=== PATIENT | male | born 1985 | race Hispanic/Latino ===

== ENCOUNTER 2022-12-05 16:57 | Emergency (ER) | payer OTHER ==
--- NOTE | 2022-12-05 18:28 | RAD REPORT ---
EXAM DESCRIPTION: RAD - Tib Fib Right - 12/05/2022 5:56 pm CLINICAL HISTORY: PAIN COMPARISON: No comparisons TECHNIQUE: Right tibia and fibula, 2 views. FINDINGS: No fracture is identified. There is no dislocation or periosteal reaction noted. No acute or suspicious bony finding. No foreign body or other soft tissue abnormality. IMPRESSION: Negative right tibia & fibula examination.
--- NOTE | 2022-12-05 18:29 | RAD REPORT ---
EXAM DESCRIPTION: RAD - Foot Right 2 View - 12/05/2022 5:56 pm CLINICAL HISTORY: PAIN COMPARISON: No comparisons TECHNIQUE: Right foot, 2 views. FINDINGS: No fracture, dislocation or periosteal reaction. No air or foreign body in the soft tissues. IMPRESSION: Negative right foot examination.
--- NOTE | 2022-12-05 18:29 | RAD REPORT ---
EXAM DESCRIPTION: RAD - Tib Fib Left - 12/05/2022 5:56 pm CLINICAL HISTORY: PAIN COMPARISON: Tib Fib Right dated 12/05/2022 TECHNIQUE: Left tibia and fibula, 2 views. FINDINGS: No fracture is identified. There is no dislocation or periosteal reaction noted. Epiphyses and growth plates are normal in appea betty. No foreign body or other soft tissue abnormality. IMPRESSION: Negative left tibia & fibula examination.
--- NOTE | 2022-12-05 18:31 | RAD REPORT ---
EXAM DESCRIPTION: RAD - Foot Left 2 View - 12/05/2022 5:56 pm CLINICAL HISTORY: PAIN COMPARISON: No comparisons TECHNIQUE: Left foot, 2 views. FINDINGS: No fracture, dislocation or periosteal reaction. No air or foreign body in the soft tissues. IMPRESSION: Negative left foot radiographs.
--- NOTE | 2022-12-05 18:32 | RAD REPORT ---
EXAM DESCRIPTION: RAD - Femur Left - 12/05/2022 5:56 pm CLINICAL HISTORY: PAIN COMPARISON: Tib Fib Left dated 12/05/2022 TECHNIQUE: Left femur, 2 views. FINDINGS: No fracture is identified. There is no dislocation or periosteal reaction noted. No acute or suspicious bony finding. IMPRESSION: Negative left femur examination.
--- NOTE | 2022-12-05 18:43 | EDPHYS ---
Physician Documentation [facility] Name: Paris Velasquez Jr Age: 37 yrs Sex: Male : 1985 Arrival Date: 12/05/2022 Time: 16:57 Bed Treatment Private MD: ED Physician Yan Huggins HPI: 12/05 18:19 This 37 yrs old Male presents to ER via Ambulatory with complaints of Fell Out kb of a Tree. 18:19 Trauma demographics: County: The injury occurred in [place] Location of Injury: The kb injury occurred at home, Date: December 05, 2022. Mechanism of injury: Fall: the patient fell from a tree, approximately approximately 20 feet. Associated injuries: The patient sustained right leg and left leg, decreased range of motion, painful injury. Onset: The symptoms/episode began/occurred 2 hour(s) ago. The patient has not experienced similar symptoms in the past. The patient has not recently seen a physician. Pt reports he was cutting limbs in a tree and fell to the ground. Denies headache, dizziness or loc. Denies neck pain, back pain, shortness of breath, numbness or tingling. States he was able to walk immediately afterwards, but after he cooled off he started having pain to both legs below knees. Historical: - Allergies: 17:08 No Known Allergies; ss - Home Meds: 17:08 None [Active]; ss - PMHx: 17:08 None; ss - PSHx: 17:08 None; ss - Immunization history:: Client reports having NOT received the Covid vaccine. - Social history:: Smoking status: Patient reports the use of cigarette tobacco products, smokes one pack cigarettes per day. ROS: 18:16 Constitutional: Negative for fever, chills, and weight loss. kb 18:16 MS/extremity: Positive for pain, of the right leg and left leg. 18:16 All other systems are negative. Exam: 18:16 Constitutional: This is a well developed, well nourished patient who is awake, alert, kb and in no acute distress. Head/Face: Normocephalic, atraumatic. ENT: Moist Mucous membranes Neck: Trachea midline, no thyromegaly or masses palpated, and no cervical lymphadenopathy. Supple, full range of motion without nuchal rigidity, or vertebral point tenderness. No Meningismus. Chest/axilla: Normal chest wall appearance and motion. Cardiovascular: Regular rate and rhythm with a normal S1 and S2. No gallops, murmurs, or rubs. No pulse deficits. Respiratory: Respirations even and unlabored. No increased work of breathing. Talking in full sentences Abdomen/GI: Soft, non-tender. No distention Back: No spinal tenderness. No costovertebral tenderness. Full range of motion. Neuro: Awake and alert, GCS 15, oriented to person, place, time, and situation. Moves all extremities. Normal gait. 18:16 Eyes: Periorbital structures: appear normal, Pupils: equal, round, and reactive to light and accomodation, Extraocular movements: intact throughout, Conjunctiva: subconjunctival hemorrhage(s), seen in the left eye, at 9 o'clock. 18:16 Musculoskeletal/extremity: Extremities: grossly normal except: noted in the right lopez, anterior aspect of right ankle, dorsum of right foot, left lopez, anterior aspect of left ankle and dorsum of left foot: ROM: limited active range of motion due to pain, in the left quadriceps, Circulation is intact in all extremities. Sensation intact. Weight bearing: is unable to bear weight. 18:16 Skin: injury, abrasion(s), small abrasion noted, moderate sized abrasion noted, of the right arm, contusion(s), that are superficial, of the lateral aspect of left thigh. Vital Signs: 17:04 BP 111 / 80; ss 17:04 Pulse 83; Resp 18; Temp 98.7(TE); Pulse Ox 99% on R/A; Weight 63.5 kg; Height 5 ft. 5 ss in. ; Pain 8/10; 17:15 BP 115 / 78; Pulse 78; Resp 16; Pulse Ox 99% ; ko1 18:45 BP 124 / 76; Pulse 82; Resp 18; Pulse Ox 99% ; ko1 17:04 Body Mass Index 23.30 (63.50 kg, 165.1 cm) ss 17:04 Pain Scale: Adult ss MDM: 17:04 Patient medically screened. kb 18:16 Refusal of service: The patient/guardian displays adequate decision making capability kb and despite a detailed discussion of alternatives, benefits, risks, and consequences refuses: CT Scan. 18:20 Differential diagnosis: closed head injury, extremity fracture, C spine fracture, T kb spine fracture, L spine fracture. Data reviewed: vital signs, nurses notes. Historians other than the Patient: Spouse/Significant Other: . Counseling: I had a detailed discussion with the patient and/or guardian regarding: the historical points, exam findings, and any diagnostic results supporting the discharge/admit diagnosis, radiology results, the need for outpatient follow up, a family practitioner, to return to the emergency department if symptoms worsen or persist or if there are any questions or concerns that arise at home. ED course: Discussed need for CT to rule out any major injuries due to mechanism of injury. Pt refuses CT scan. 12/05 17:15 Order name: Femur Left XRAY; Complete Time: 18:41 kb 12/05 17:15 Order name: Tib Fib Left XRAY; Complete Time: 18:31 kb 12/05 17:15 Order name: Tib Fib Right XRAY; Complete Time: 18:31 kb 12/05 17:15 Order name: Foot Left 2 View XRAY; Complete Time: 18:31 kb 12/05 17:15 Order name: Foot Right 2 View XRAY; Complete Time: 18:31 kb Administered Medications: No medications were administered Disposition: 20:37 Co-signature as Attending Physician, Yan Huggins MD I reviewed the patient's care rn provided by the Advanced Practice Provider and agree with the diagnosis and treatment plan. Disposition Summary: 12/05/22 18:42 Discharge Ordered Location: Home kb Condition: Stable kb Diagnosis - Pain in right lower leg kb - Pain in left lower leg kb - Subconjunctival hemorrhage kb - Abrasion of right upper arm kb - Contusion of left lower leg kb Followup: kb - With: Emergency Department - When: As needed - Reason: Worsening of condition Followup: kb - With: Private Physician - When: 2 - 3 days - Reason: Recheck today's complaints, Continuance of care, Re-evaluation by your physician Discharge Instructions: - Discharge Summary Sheet kb - Musculoskeletal Pain kb - Subconjunctival Hemorrhage kb - Contusion, [id number] kb Forms: - Medication Reconciliation Form kb - Thank You Letter kb - Antibiotic Education kb - Prescription Opioid Use kb - [email or web address] kb Prescriptions: - Diclofenac Sodium 75 mg Oral tablet,delayed release (DR/EC) - take 1 tablet by ORAL route 2 times per day As needed; 30 tablet; Refills: 0, kb Product Selection Permitted - orphenadrine citrate 100 mg Oral Tablet Sustained Release - take 1 tablet by ORAL route 2 times per day As needed; 20 tablet; Refills: 0, kb Product Selection Permitted Signatures: Dispatcher [employer] EDConsuelo Wong, PRINTING SUPERVISOR-C PRINTING SUPERVISOR-Yan Keyes MD MD rn Blanchard, Shelby, RN RN ss Corrections: (The following items were deleted from the chart) 18:16 17:15 Head C Spine Cap Wo Con+CT.RAD.BRZ ordered. EDMS EDMS
--- NOTE | 2022-12-05 18:43 | ER ---
Nurse's Notes [facility] Name: Paris Velasquez Jr Age: 37 yrs Sex: Male : 1985 Arrival Date: 12/05/2022 Time: 16:57 Bed Treatment Private MD: Diagnosis: Pain in right lower leg;Pain in left lower leg;Subconjunctival hemorrhage;Abrasion of right upper arm;Contusion of left lower leg Presentation: 12/05 17:04 Chief complaint: Patient states: bilateral ankle/ foot pain after falling 20 feet out ss of a tree. Pt has no other complaints at this time. Coronavirus screen: Client denies travel out of the [place] in the last 14 days. Ebola Screen: Patient denies exposure to infectious person. Patient denies travel to an Ebola-affected area in the 21 days before illness onset. Initial Sepsis Screen: Does the patient meet any 2 criteria? No. Patient's initial sepsis screen is negative. Does the patient have a suspected source of infection? No. Patient's initial sepsis screen is negative. Risk Assessment: Do you want to hurt yourself or someone else? Patient reports no desire to harm self or others. Onset of symptoms was December 05, 2022. 17:04 Method Of Arrival: Ambulatory ss 17:04 Acuity: JESSICA 2 ss Historical: - Allergies: 17:08 No Known Allergies; ss - Home Meds: 17:08 None [Active]; ss - PMHx: 17:08 None; ss - PSHx: 17:08 None; ss - Immunization history:: Client reports having NOT received the Covid vaccine. - Social history:: Smoking status: Patient reports the use of cigarette tobacco products, smokes one pack cigarettes per day. Screenin:15 [facility] ED Fall Risk Assessment (Adult) History of falling in the last 3 months, ko1 including since admission Yes- single mechanical fall (1 pt) Confusion or Disorientation No (0 pts) Intoxicated or Sedated No (0 pts) Impaired Gait No (0 pts) Mobility Assist Device Used No (0 pt) Altered Elimination No (0 pt) Score/Fall Risk Level 0 - 2 = Low Risk Oriented to surroundings, Maintained a safe environment, Educated pt \T\ family on fall prevention, incl call for assistance when getting out of bed, Assessed \T\ reinforced patient's understanding of fall precautions, Provided non-skid footwear, Hourly rounding (assess needs \T\ fall precautionary measures) done, Used ambulatory aids as needed (educated on \T\ assisted with), Used gait belt as appropriate. Abuse screen: Denies threats or abuse. Denies injuries from another. Nutritional screening: No deficits noted. Tuberculosis screening: No symptoms or risk factors identified. Assessment: 17:15 General: Appears in no apparent distress. uncomfortable, Behavior is calm, cooperative, ko1 appropriate for age. Pain: Complains of pain in right leg and left leg. Neuro: No deficits noted. Cardiovascular: No deficits noted. Respiratory: No deficits noted. GI: No deficits noted. : No deficits noted. EENT: No deficits noted. Derm: No deficits noted. Musculoskeletal: Reports pain in right leg and left leg. Vital Signs: 17:04 BP 111 / 80; ss 17:04 Pulse 83; Resp 18; Temp 98.7(TE); Pulse Ox 99% on R/A; Weight 63.5 kg; Height 5 ft. 5 ss in. ; Pain 8/10; 17:15 BP 115 / 78; Pulse 78; Resp 16; Pulse Ox 99% ; ko1 18:45 BP 124 / 76; Pulse 82; Resp 18; Pulse Ox 99% ; ko1 17:04 Body Mass Index 23.30 (63.50 kg, 165.1 cm) ss 17:04 Pain Scale: Adult ss ED Course: 16:58 Patient arrived in ED. rg4 17:04 Consuelo Holland FNP-C is [facility]. kb 17:04 Yan Huggins MD is Attending Physician. kb 17:06 Jen Fierro, DAYANNA is Primary Nurse. ko1 17:08 Triage completed. ss 17:08 Arm band placed on right wrist. ss 17:15 Patient has correct armband on for positive identification. Bed in low position. Call ko1 light in reach. Pulse ox on. NIBP on. Door closed. Noise minimized. Warm blanket given. 17:58 Femur Left XRAY In Process Unspecified. EDMS 17:58 Tib Fib Left XRAY In Process Unspecified. EDMS 17:58 Tib Fib Right XRAY In Process Unspecified. EDMS 17:58 Foot Left 2 View XRAY In Process Unspecified. EDMS 17:58 Foot Right 2 View XRAY In Process Unspecified. EDMS 18:45 No provider procedures requiring assistance completed. Patient did not have IV access ko1 during this emergency room visit. Administered Medications: No medications were administered Medication: 17:15 VIS not applicable for this client. ko1 Outcome: 18:42 Discharge ordered by . pat 18:45 Discharged to home via wheelchair, with family. ko1 18:45 Condition: stable 18:45 Discharge instructions given to patient, family, Instructed on discharge instructions, follow up and referral plans. medication usage, Demonstrated understanding of instructions, follow-up care, medications, Prescriptions given X 2. 18:55 Patient left the ED. ko1 Signatures: Dispatcher [employer] EDConsuelo Wong, CHILD CARE EDUCATION COORDINATOR-C CHILD CARE EDUCATION COORDINATOR-Nikki Willard, RN RN Sandy Shipley 4 Jen Fierro RN RN ko1
[2022-12-05 19:43] VITALS: TEMP 98.7; O2SAT 99
[2022-12-05 19:47] VITALS: BP 124/76
== END 2022-12-05 18:55 | disposition home or self-care (01) ==
LOC: ER 16:57
DX: M79.662 Pain in left lower leg (principal); M79.661 Pain in right lower leg; H11.32 Conjunctival hemorrhage, left eye; S40.811A Abrasion of right upper arm, initial encounter; S80.12XA Contusion of left lower leg, initial encounter
CPT/HCPCS: 99284